=== PATIENT | female | born 1980 | race Caucasian/White ===

== ENCOUNTER 2020-08-07 16:57 | Emergency (ER) | payer OTHER ==
[~2020-08-07] VITALS: Ht 175.3 cm; Wt 124.6 kg
[2020-08-07] MEDS ORDERED: diazePAM 10 MG TAB PO ONE (18:30)
[2020-08-07] MEDS ORDERED: NAPR-837 PO (18:30)
[2020-08-07] MEDS ORDERED: KETOROLAC 60MG 2ML VIAL IM ONE (18:30)
[2020-08-07] MEDS ORDERED: ROBA750T4 PO (18:30)
[2020-08-07 19:20] VITALS: BP 140/83
== END 2020-08-07 19:32 | disposition home or self-care (01) ==
LOC: M ED 16:57
DX: M54.5 Low back pain (principal); Z88.8 Allergy status to other drugs, medicaments and biological substances
CPT/HCPCS: 81001; 87086; 96372; 99283; J1885

== ENCOUNTER → 2021-01-18 | Outpatient (CLI) | payer SELFPAY ==
[~2021-01-18] MED LIST: NAPR-837 PO; ROBA750T4 PO
== END ==
LOC: M LABSMTC 11:34
PROVIDERS: ATTEND Pediatrics
DX: Z11.52 Encounter for screening for COVID-19 (principal)